=== PATIENT | male | born 1950 | race Caucasian/White ===

== ENCOUNTER → 2020-07-09 13:31 | Outpatient (CLI) | payer MEDICARE, OTHER, SELFPAY ==
--- NOTE | 2020-07-09 13:36 | DI.ECHO.S_ITS ---
[facility]---------[facility] +---------+ : : [address] : : : : [id number] : : : : Phone: [phone]+ Echocardiogram Report + + :Name: VANESSA MADERA Study Date: 07/09/2020 Height: 70 in : :[facility] ReadingLocation: Weight: 210 lb : : Gender: Male BSA: 2.1 m2 : :: 1950 Age: 69 yrs BP: 118/64 mmHg: :Reason For Study: LV DYSFUNCTION : :Ordering Physician: LUCAS, : :LAURA Performed By: Sonia Huber : :Referring: LAURA ZAVALA : + + Interpretation Summary Limited 2D echo. The left ventricle is normal in size and wall thickness. The ejection fraction is estimated to be 50-55%. Compared to the prior exam, the left ventricular function is improved significantly. The IVC is of normal diameter and collapses greater than 50% with a sniff. This suggests a low right atrial pressure of 3 mm Hg. As per the echo report from [facility] from October 2019, LV function has significantly improved. In the previous report, patient was in A. fib with LV ejection fraction 30 to 40%. In this study rhythm is sinus with LV ejection fraction about 50 to 55%. Procedure: A two-dimensional transthoracic echocardiogram with color flow and Doppler was performed in limited views only to assess ejection fraction.. The study quality was technically adequate. Comparison is made with the echocardiogram of October 2019, echo report from [facility].. The patient was in sinus rhythm with heart rates between 51-65 bpm during the exam. Left Ventricle: The left ventricle is normal in size and wall thickness. There is no thrombus. The ejection fraction is estimated to be 50-55%. Compared to the prior exam, the left ventricular function is improved. There are no focal wall motion abnormalities. MV E/A: 1.1 Med Peak E' John: 8.9 cm/sec E/E' med: 9.5. Right Ventricle: The right ventricle is normal in size and function. Atria: The left atrium is moderately dilated. The left atrium has mildly decreased in size since the prior echo exam. Right atrial size is normal. The right atrium has significantly decreased in size since the prior echo exam. Tricuspid Valve: Pulmonary artery pressures cannot be estimated because of the lack of a measurable TR jet velocity but the IVC suggests a CVP of around 3 mmHg. Great Vessels: The IVC is of normal diameter and collapses greater than 50% with a sniff. This suggests a low right atrial pressure of 3 mm Hg. Pericardium/ Pleura There is no pericardial effusion. There is no pleural effusion. MMode/2D Measurements & Calculations LVIDd: 5.6 cm LA A2 area: 26.5 cm2 LVIDs: 4.1 cm LA A4 area: 26.0 cm2 FS: 28.1 % LA length (vol): 6.2 cm IVSd: 0.82 cm LA vol: 93.8 ml LVPWd: 0.80 cm LA vol index: 44.0 ml/m2 LV moore. diameter/BSA (cm/m^2): 2.7 LV sys. diameter/BSA (cm/m^2): 1.9 RA long axis: 5.9 cm RVD1 (basal): 2.8 cm RA area: 18.1 cm2 TAPSE: 2.6 cm RA vol: 47.3 ml RA : 22.2 ml/m2 IVC diam: 1.2 cm Doppler Measurements & Calculations MV E max john: 84.0 cm/sec MV A max john: 77.6 cm/sec MV E/A: 1.1 Med Peak E' John: 8.9 cm/sec E/E' med: 9.5 Lat Peak E' John: 10.3 cm/sec E/E' lat: 8.1 E/e' average: 8.8 MV dec time: 0.25 sec Reading Physician:04:19 PM
== END ==
PROVIDERS: PCP Internal Medicine Geriatric Medicine; Referring Provider Internal Medicine Cardiovascular Disease; Visit Provider Internal Medicine Cardiovascular Disease
DX: I51.9 Heart disease, unspecified (principal)
CPT/HCPCS: 93307

== ENCOUNTER 2021-05-16 21:06 | Emergency (ER) | payer MEDICARE, SELFPAY ==
[2021-05-16] VITALS (9 sets, daily range): BP systolic 125–160; BP diastolic 59–84; PULSE 109–118; RESP 19–37; TEMP 37.2; O2SAT 92–98
--- NOTE | 2021-05-16 21:03 | DI.RAD.S_ITS ---
PROCEDURE: XR CHEST 1V INDICATIONS: shortness of breath TECHNIQUE: One view of the chest was acquired. COMPARISON: [facility], CT, CT CHEST ABDOMEN PELVIS WITHOUT CONTRAST, 04/03/2021, 11:33. FINDINGS: Surgical changes and devices: Right chest Port-A-Cath Lungs and pleura: Interstitial pulmonary edema, bilateral pleural effusions, bibasilar atelectasis. Mediastinum: Mediastinal contours appear normal. Heart size is normal. Bones and chest wall: No suspicious bony lesions. Overlying soft tissues appear unremarkable. IMPRESSION: Findings most likely represent a congestive heart failure exacerbation. Dictated by: Guillermo Lucas M.D. on 05/16/2021 at 22:54 Approved by: Guillermo Lucas M.D. on 05/16/2021 at 22:55
[2021-05-16 21:34] LABS: Add Manual Diff / Slide Review NO; Basophils Absolute Auto 0 /uL (0-100); Basophils Percent Auto 0.5 % (0-2); Eosinophils Absolute Auto 100 /uL (0-450); Eosinophils Percent Auto 2.4 % (2-4); Hemoglobin 7.3 g/dL (13.5-17.5); Lymphocytes Absolute Auto 800 /uL (1100-4500); Mean Corpuscular HGB Conc 33.3 % (30-36); Monocytes Absolute Auto 100 /uL (0-900); Monocytes Percent Auto 4.9 % (3-14); Neutrophils Absolute Auto 1900 /uL (1500-7000); Neutrophils Percent Auto 65.2 % (50-75); Platelet Count 49 X10^3/uL (150-400); Red Blood Cell Count 2.36 X10^6/uL (4.5-5.9); Red Cell Distribution Width 17.4 % (11.6-14.8)
[2021-05-16 21:42] LABS: Alanine Aminotransferase 10 IU/L (<50); Albumin 3.4 g/dL (3.5-5.0); Albumin Globulin Ratio 1.5 (1.0-2.8); Alkaline Phosphatase 48 U/L (38-126); Aspartate Aminotransferase 27 IU/L (17-59); Bilirubin Total 0.9 mg/dL (0.2-1.3); Blood Urea Nitrogen 58 mg/dL (9-20); Calcium 9.7 mg/dL (8.4-10.2); Carbon Dioxide 23 mmol/L (22-32); Chloride 114 mmol/L (98-107); Estimated Glomerular Filt Rate 47.8 mL/min (>60); Globulin 2.3 g/dL (1.7-4.1); Glucose 87 mg/dL (80-110); HEMOLYSIS < 15 (0-50); Potassium 4.8 mmol/L (3.4-5.1); Sodium 141 mmol/L (137-145); Total Protein 5.7 g/dL (6.3-8.2)
--- NOTE | 2021-05-16 22:11 | PC.NURSE ---
says he's more confused
[2021-05-16 22:26] LABS: Creatine Kinase 21 U/L (55-170)
[2021-05-16 22:39] LABS: NT-proBNP (BNP-Adult 18+) 3650 pg/mL (<125); Troponin I 0.022 ng/mL (0.01-0.034)
[2021-05-16 22:42] LABS: COVID19 -Nasal RAPID Negative (Negative)
--- NOTE | 2021-05-16 23:37 | ED.SOB ---
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 The chemotherapy has been stopped due to not responding in March of 2019 to he was evaluated for possible palliative radiation, states that he is not and palliative care or hospice but he is a DNR. 04/08/2019 to he was seen by Cardiology for decompensated heart failure he was started on Lasix 20 mg however due to increased creatinine that was adjusted on 04/24/2019 to to 20 mg every other day and the digoxin was also stopped. Today he presents with decreasing mental status increasing shortness of breath. states that in the last 3 hours of being in the emergency department he has actually declined. He typically is on 3 L of oxygen at home he is currently requiring 5-6. He has obvious tachypnea. He responds to voice and sternal rub unable to answer questions appropriately or respond with much history. Most history is from records and . Related Data Allergies Allergy/AdvReac Type Severity Reaction Status Date / Time codeine Allergy Verified 05/16/21 23:22 Penicillins Allergy Rash Verified 05/16/21 23:22 sertraline Allergy Verified 05/16/21 23:22 Review of Systems Review of Systems ROS Unobtainable: Unobtainable due to mental status/LOC Patient History Medical History Atrial fibrillation CHF (congestive heart failure) Prostate cancer metastatic to bone Exam Initial Vital Signs Initial Vital Signs: Vital Signs Temperature 99 F 05/16/21 21:05 Pulse Rate 109 H 05/16/21 21:05 Respiratory Rate 22 05/16/21 21:05 Blood Pressure 148/67 H 05/16/21 21:05 Pulse Oximetry 93 05/16/21 21:05 GENERAL: Tachypneic, pale chronically ill 70-year-old male in acute distress HEENT: Head atraumatic,EOMI, pupils reactive, face symmetric, moist mucous membranes CARDIOVASCULAR: Regular rate and rhythm without murmurs, rubs or gallops. RESPIRATORY: Tachypnea, coarse breath sounds bilaterally ABDOMEN: Soft, nontender. Normoactive bowel sounds all 4 quadrants. No guarding or rebound. EXTREMITIES: Normal range of motion, no clubbing or edema. Neurovascularly intact NEUROLOGICAL: Opens eyes to voice moves all extremities SKIN: Petechiae noted all over body multiple bruising and contusion Course Orders Ordered: ED Orders 05/16/21 21:03 XR chest 1V Stat EKG-12 Lead Stat Measure peak expiratory flow ONCE RT Consult Eval and Treat Now 05/16/21 21:11 BNP [NT-proBNP (BNP-Adult 18+)] Stat Complete Blood Count AUTO DIFF Stat Comprehensive Metabolic Panel Stat Lactate (Lactic Acid) Stat Troponin & CK Cardiac Panel Stat 05/16/21 22:00 COVID19 -Nasal swab/Pre-Proc Stat 05/16/21 23:45 CT angio chest PE protocol Stat CT head/brain wo con Stat 05/17/21 03:20 PRBC [Packed Cells] Stat Type and Screen Stat Discontinued Medications Furosemide (Furosemide 40 Mg/4 Ml Vial) 40 mg IV NOW ONE Stop: 05/16/21 23:38 Last Admin: 05/16/21 23:51 Dose: 40 mg Documented by: CHAYITOARRChrissie Furosemide (Furosemide 100 Mg/10 Ml Vial) 80 mg IV NOW ONE Stop: 05/17/21 00:49 Last Admin: 05/17/21 00:52 Dose: 80 mg Documented by: [email or web address].[email or web address] Hydromorphone HCl (Hydromorphone 1 Mg Inj) 1 mg IV NOW ONE Stop: 05/16/21 23:41 Last Admin: 05/16/21 23:53 Dose: Not Given Documented by: FARTUN Nitroglycerin (Nitroglycerin 0.4 Mg Sl Tab) 0.4 mg SL NOW ONE Stop: 05/17/21 00:52 Last Admin: 05/17/21 00:55 Dose: 0.4 mg Documented by: BRIAN Vital Signs Vital signs: Vital Signs - 8 hr 05/16/21 21:05 05/16/21 21:18 05/16/21 21:19 Temperature 99 F Pulse Rate 109 H 109 H 109 H Respiratory Rate Blood Pressure 148/67 H 153/59 H Pulse Oximetry 93 92 92 05/16/21 21:30 05/16/21 22:00 05/16/21 22:30 Temperature Pulse Rate 109 H 110 H 110 H Respiratory Rate 21 24 19 Blood Pressure 160/68 H 149/73 H 142/65 H Pulse Oximetry 92 93 95 05/16/21 23:00 05/16/21 23:30 05/16/21 23:31 Temperature Pulse Rate 115 H 118 H 118 H Respiratory Rate 20 24 37 H Blood Pressure 146/76 H 125/84 Pulse Oximetry 96 97 98 05/17/21 00:09 05/17/21 00:15 05/17/21 00:30 Temperature Pulse Rate 90 137 H 140 H Respiratory Rate Blood Pressure 188/86 H 194/79 H Pulse Oximetry 74 L 95 05/17/21 00:49 05/17/21 00:52 05/17/21 01:00 Temperature Pulse Rate 128 H 136 H 130 H Respiratory Rate 30 H 44 H 35 H Blood Pressure 194/79 H 159/70 H 153/70 H Pulse Oximetry 98 96 05/17/21 01:05 05/17/21 01:10 05/17/21 01:15 Temperature Pulse Rate 128 H 134 H 128 H Respiratory Rate 26 H 28 H 29 H Blood Pressure 137/62 132/58 L 143/60 H Pulse Oximetry 95 94 95 05/17/21 01:20 05/17/21 01:25 05/17/21 01:30 Temperature Pulse Rate 122 H 120 H 125 H Respiratory Rate 21 20 24 Blood Pressure 116/54 L 116/56 L 132/57 L Pulse Oximetry 97 97 97 05/17/21 01:35 05/17/21 01:41 05/17/21 01:45 Temperature Pulse Rate 122 H 133 H 119 H Respiratory Rate 26 H 48 H 22 Blood Pressure 140/63 147/70 H 137/61 Pulse Oximetry 97 95 97 05/17/21 01:50 05/17/21 01:56 05/17/21 02:00 Temperature Pulse Rate 121 H 126 H 125 H Respiratory Rate 23 45 H 28 H Blood Pressure 131/61 141/67 H 148/70 H Pulse Oximetry 98 85 L 94 05/17/21 02:05 05/17/21 02:10 05/17/21 02:15 Temperature Pulse Rate 125 H 126 H 120 H Respiratory Rate 24 28 H 26 H Blood Pressure 149/68 H 141/57 H 138/62 Pulse Oximetry 98 97 97 05/17/21 02:20 05/17/21 02:25 05/17/21 02:30 Temperature Pulse Rate 129 H 126 H 127 H Respiratory Rate 25 H 39 H 34 H Blood Pressure 144/68 H 140/65 138/66 Pulse Oximetry 95 98 98 05/17/21 02:35 05/17/21 02:40 05/17/21 02:45 Temperature Pulse Rate 123 H 122 H 118 H Respiratory Rate 26 H 27 H 21 Blood Pressure 135/63 127/60 124/58 L Pulse Oximetry 99 98 99 05/17/21 02:46 05/17/21 02:50 05/17/21 02:51 Temperature Pulse Rate 119 H 119 H 119 H Respiratory Rate 20 23 20 Blood Pressure 127/60 120/59 L 127/60 Pulse Oximetry 98 98 98 05/17/21 02:56 05/17/21 03:00 05/17/21 03:01 Temperature Pulse Rate 126 H 123 H 121 H Respiratory Rate 24 28 H 22 Blood Pressure 169/70 H 134/60 Pulse Oximetry 99 91 05/17/21 03:05 05/17/21 03:10 05/17/21 03:30 Temperature Pulse Rate 118 H 123 H 123 H Respiratory Rate 25 H 25 H 23 Blood Pressure 132/62 134/63 150/70 H Pulse Oximetry 98 96 97 05/17/21 04:00 05/17/21 04:10 05/17/21 04:27 Temperature 98.2 F Pulse Rate 124 H 117 H 115 H Respiratory Rate 34 H 23 32 H Blood Pressure 99/47 L 131/59 L Pulse Oximetry 97 95 MDM - SOB/Dyspnea Lab Data Result diagrams: 05/16/21 21:11 05/16/21 21:11 Labs: Lab Results 05/16/21 05/16/21 05/16/21 Range/Units 21:11 21:11 21:11 WBC 3.0 L (4.5-11.0) X10^3/uL RBC 2.36 L (4.5-5.9) X10^6/uL Hgb 7.3 L (13.5-17.5) g/dL Hct 22.0 L (41-53) % MCV 93.0 (80-100) fL MCH 31.0 (26-34) PG MCHC 33.3 (30-36) % RDW 17.4 H (11.6-14.8) % Plt Count 49 L (150-400) X10^3/uL Neut % (Auto) 65.2 (50-75) % Lymph % (Auto) 27.0 (25-40) % Meriwether % (Auto) 4.9 (3-14) % Eos % (Auto) 2.4 (2-4) % Baso % (Auto) 0.5 (0-2) % Neut # (Auto) 1900 (9922-2937) /uL Lymph # (Auto) 800 L (0879-1822) /uL Meriwether # (Auto) 100 (0-900) /uL Eos # (Auto) 100 (0-450) /uL Baso # (Auto) 0 (0-100) /uL Sodium 141 (137-145) mmol/L Potassium 4.8 (3.4-5.1) mmol/L Chloride 114 H (98-107) mmol/L Carbon Dioxide 23 (22-32) mmol/L BUN 58 H (9-20) mg/dL Creatinine 1.45 H (0.66-1.25) mg/dL Estimated GFR 47.8 L (>60) mL/min BUN/Creatinine Ratio 40.0 H (6-22) Glucose 87 (80-110) mg/dL Lactate 1.0 (0.7-2.1) mmol/L Calcium 9.7 (8.4-10.2) mg/dL Total Bilirubin 0.9 (0.2-1.3) mg/dL AST 27 (17-59) IU/L ALT 10 (<50) IU/L Alkaline Phosphatase 48 (38-126) U/L Total Creatine Kinase (55-170) U/L CK-MB (CK-2) CK-MB (CK-2) Rel Index Troponin I (0.01-0.034) ng/mL NT-Pro-B Natriuret Pep (<125) pg/mL Total Protein 5.7 L (6.3-8.2) g/dL Albumin 3.4 L (3.5-5.0) g/dL Globulin 2.3 (1.7-4.1) g/dL Albumin/Globulin Ratio 1.5 (1.0-2.8) SARS-CoV-2 (PCR) (Negative) Blood Type Antibody Screen Crossmatch 05/16/21 05/16/21 05/17/21 Range/Units 21:11 22:00 03:20 WBC (4.5-11.0) X10^3/uL RBC (4.5-5.9) X10^6/uL Hgb (13.5-17.5) g/dL Hct (41-53) % MCV (80-100) fL MCH (26-34) PG MCHC (30-36) % RDW (11.6-14.8) % Plt Count (150-400) X10^3/uL Neut % (Auto) (50-75) % Lymph % (Auto) (25-40) % Meriwether % (Auto) (3-14) % Eos % (Auto) (2-4) % Baso % (Auto) (0-2) % Neut # (Auto) (9720-0583) /uL Lymph # (Auto) (8724-6897) /uL Meriwether # (Auto) (0-900) /uL Eos # (Auto) (0-450) /uL Baso # (Auto) (0-100) /uL Sodium (137-145) mmol/L Potassium (3.4-5.1) mmol/L Chloride (98-107) mmol/L Carbon Dioxide (22-32) mmol/L BUN (9-20) mg/dL Creatinine (0.66-1.25) mg/dL Estimated GFR (>60) mL/min BUN/Creatinine Ratio (6-22) Glucose (80-110) mg/dL Lactate (0.7-2.1) mmol/L Calcium (8.4-10.2) mg/dL Total Bilirubin (0.2-1.3) mg/dL AST (17-59) IU/L ALT (<50) IU/L Alkaline Phosphatase (38-126) U/L Total Creatine Kinase 21 L (55-170) U/L CK-MB (CK-2) TNP CK-MB (CK-2) Rel Index TNP Troponin I 0.022 (0.01-0.034) ng/mL NT-Pro-B Natriuret Pep 3650 H (<125) pg/mL Total Protein (6.3-8.2) g/dL Albumin (3.5-5.0) g/dL Globulin (1.7-4.1) g/dL Albumin/Globulin Ratio (1.0-2.8) SARS-CoV-2 (PCR) Negative (Negative) Blood Type O Positive Antibody Screen Negative Crossmatch See Detail Imaging Data CT scan - chest: Radiologist's Impression: PROCEDURE:? CT ANGIO CHEST PE PROTOCOL ? INDICATIONS:? hypoxic ? TECHNIQUE:? After the administration of intravenous contrast, 2 mm thick sections acquired from the pulmonary apices to the posterior costophrenic angles.? 3-dimensional maximum intensity projection (MIP) coronal and sagittal reformats were then acquired through the thorax.? For radiation dose reduction, the following was used:? automated exposure control, adjustment of mA and/or kV according to patient size.? ? COMPARISON:? [facility], CT, CT CHEST ABDOMEN PELVIS WITHOUT CONTRAST, 04/03/2021, 11:33. ? FINDINGS:? Image quality:? Excellent.? ? Pulmonary arteries:? Pulmonary arteries are normal in size, and demonstrate no intraluminal filling defects to suggest central pulmonary embolism.? ? Lungs and pleura:? Diffuse severe lower and interstitial pulmonary edema, large bilateral pleural effusions, compressive bibasilar atelectasis. ? Mediastinum:? Mild cardiomegaly.? No pericardial effusion.? Moderate coronary artery calcifications.? No mediastinal or hilar adenopathy.? Thoracic aorta is normal in caliber and enhancement.? Esophagus is normal in caliber, without hiatal hernia.? ? Bones and chest wall:? Diffuse osseous blastic metastatic disease.? Thyroid gland is unremarkable as visualized.? No axillary or supraclavicular adenopathy.? ? Abdomen:? Right kidney appears somewhat atrophied. ? IMPRESSION:? ? 1. Severe congestive heart failure exacerbation. ? 2. No evidence acute pulmonary emboli. ? 3. Blastic metastatic disease consistent with prostate metastatic lesions.? ? ? Dictated by: Guillermo Lucas M.D. on 05/17/2021 at 0:37 ? ? Approved by: Guillermo Lucas M.D. on 05/17/2021 at 0:42? Chest x-ray: Radiologist's Impression: PROCEDURE:? XR CHEST 1V ? INDICATIONS:? shortness of breath ? TECHNIQUE:? One view of the chest was acquired.? ? COMPARISON:? [facility], CT, CT CHEST ABDOMEN PELVIS WITHOUT CONTRAST, 04/03/2021, 11:33. ? FINDINGS:? ? Surgical changes and devices:? Right chest Port-A-Cath ? Lungs and pleura:? Interstitial pulmonary edema, bilateral pleural effusions, bibasilar atelectasis. ? Mediastinum:? Mediastinal contours appear normal.? Heart size is normal.? ? Bones and chest wall:? No suspicious bony lesions.? Overlying soft tissues appear unremarkable.? ? IMPRESSION:? Findings most likely represent a congestive heart failure exacerbation. ? ? Dictated by: Guillermo Lucas M.D. on 05/16/2021 at 22:54 ? ? CT scan - head: Radiologist's Impression: PROCEDURE:? CT HEAD/BRAIN WO CON ? INDICATIONS:? decreased mental status with cancer and mets ? TECHNIQUE:? Noncontrast 4.5 mm thick angled axial sections acquired from the foramen magnum to the vertex, with coronal and sagittal reformats.? For radiation dose reduction, the following was used:? automated exposure control, adjustment of mA and/or kV according to patient size.? ? COMPARISON:? None. ? FINDINGS:? Image quality:? Excellent.? ? CSF spaces:? Basal cisterns are patent.? No extra-axial fluid collections.? The ventricles are symmetric in size and shape.? ? Brain:? No intracranial bleeds or masses.? There is cerebral volume loss for age, with resultant ventricular and sulcal prominence.? There are periventricular and deep white matter chronic small vessel ischemic changes.? There is intracranial internal carotid artery atherosclerosis.? ? Skull and face:? Calvarium and visualized facial bones appear intact, without suspicious lesions.? ? Sinuses:? Visualized sinuses and mastoids are clear.? ? IMPRESSION:? No evidence acute stroke, hemorrhage, or mass. ? ? Dictated by: Guillermo Lucas M.D. on 05/17/2021 at 0:36 ? ? ECG Data Interpretation: Sinus rhythm rate 112 NC interval 184 QRS 94 QTC 434 PVC noted MDM Narrative Medical decision making narrative: Patient is tachypneic pale slightly cyanotic. He went to CT for rule out pulmonary embolism, which was negative and showed severe congestive heart failure, where he had to lay flat came back pain was significantly worse. Required immediate high-flow nasal cannula. He had not urinated with the 40 of Lasix overall Decompensating. Discussion with who states that she did not want BiPAP he is DNR/DNI a but was agreeable to high-flow nasal cannula. He was given 2nd dose of 80 mg of Lasix along with nitroglycerin to help with diuresis. Villanueva catheter was not placed previously patient had very traumatic Villanueva catheter placement there is a lot of scar tissue, urinal placed instead. Patient continues to be anemic with a hemoglobin of 7.3 he actually was transfused unit yesterday. Record to finally been received and reviewed at [facility] blood transfusion threshold is a hemoglobin of 8/24. Patient has turned around color appears pink respiratory rate has improved. He is maintaining much better. I did discuss with family withdrawing care comfort only hospice and other options. At some the patient has had a gradual decline over the last 2 months and getting significantly worse. At this time they are agreeable to continue high-flow nasal cannula and diuresis. [facility] dose Not have any ICU beds which she requires here due to the high-flow nasal cannula He is followed at [facility] but they don't have bed availability Dr. Lebron, hospitalist at [facility] has been updated patient's symptoms and test results happily accepted. Critical Care Time Critical Care Time Critical Care Time: Yes Total Critical Care Time: 60 Attestation: The high probability of a clinically significant, sudden or life threatening deterioration of the [cardiovascular] system(s) required my full and direct attention, intervention and personal management. The aggregate critical care time was 60 minutes. This time is in addition to time spent performing reported procedures but includes the following: [x] Data Review and interpretation [x] Patient assessment and monitoring of vital signs [x] Documentation [x] Medication orders and management Discharge Plan Departure [facility] Impression: Congestive heart failure, Anemia Referrals: Marybeth Kim MD [Primary Care Provider] - Stand Alone Forms: Work Release Note
--- NOTE | 2021-05-16 23:45 | DI.CT.S_ITS ---
PROCEDURE: CT ANGIO CHEST PE PROTOCOL INDICATIONS: hypoxic TECHNIQUE: After the administration of intravenous contrast, 2 mm thick sections acquired from the pulmonary apices to the posterior costophrenic angles. 3-dimensional maximum intensity projection (MIP) coronal and sagittal reformats were then acquired through the thorax. For radiation dose reduction, the following was used: automated exposure control, adjustment of mA and/or kV according to patient size. COMPARISON: [facility], CT, CT CHEST ABDOMEN PELVIS WITHOUT CONTRAST, 04/03/2021, 11:33. FINDINGS: Image quality: Excellent. Pulmonary arteries: Pulmonary arteries are normal in size, and demonstrate no intraluminal filling defects to suggest central pulmonary embolism. Lungs and pleura: Diffuse severe lower and interstitial pulmonary edema, large bilateral pleural effusions, compressive bibasilar atelectasis. Mediastinum: Mild cardiomegaly. No pericardial effusion. Moderate coronary artery calcifications. No mediastinal or hilar adenopathy. Thoracic aorta is normal in caliber and enhancement. Esophagus is normal in caliber, without hiatal hernia. Bones and chest wall: Diffuse osseous blastic metastatic disease. Thyroid gland is unremarkable as visualized. No axillary or supraclavicular adenopathy. Abdomen: Right kidney appears somewhat atrophied. IMPRESSION: 1. Severe congestive heart failure exacerbation. 2. No evidence acute pulmonary emboli. 3. Blastic metastatic disease consistent with prostate metastatic lesions. Dictated by: Guillermo Lucas M.D. on 05/17/2021 at 0:37 Approved by: Guillermo Lucas M.D. on 05/17/2021 at 0:42
--- NOTE | 2021-05-16 23:45 | DI.CT.S_ITS ---
PROCEDURE: CT HEAD/BRAIN WO CON INDICATIONS: decreased mental status with cancer and mets TECHNIQUE: Noncontrast 4.5 mm thick angled axial sections acquired from the foramen magnum to the vertex, with coronal and sagittal reformats. For radiation dose reduction, the following was used: automated exposure control, adjustment of mA and/or kV according to patient size. COMPARISON: None. FINDINGS: Image quality: Excellent. CSF spaces: Basal cisterns are patent. No extra-axial fluid collections. The ventricles are symmetric in size and shape. Brain: No intracranial bleeds or masses. There is cerebral volume loss for age, with resultant ventricular and sulcal prominence. There are periventricular and deep white matter chronic small vessel ischemic changes. There is intracranial internal carotid artery atherosclerosis. Skull and face: Calvarium and visualized facial bones appear intact, without suspicious lesions. Sinuses: Visualized sinuses and mastoids are clear. IMPRESSION: No evidence acute stroke, hemorrhage, or mass. Dictated by: Guillermo Lucas M.D. on 05/17/2021 at 0:36 Approved by: Guillermo Lucas M.D. on 05/17/2021 at 0:37
[2021-05-16] MEDS: FUROSEMIDE 40 MG/4 ML VIAL IV (23:51)
[2021-05-17] VITALS (40 sets, daily range): BP systolic 99–194; BP diastolic 47–86; PULSE 90–140; RESP 20–48; TEMP 36.8; O2SAT 74–99
[2021-05-17] MEDS: FUROSEMIDE 100 MG/10 ML VIAL 80 MG IV (00:52)
[2021-05-17] MEDS: NITROGLYCERIN 0.4 MG SL TAB SL (00:55)
--- NOTE | 2021-05-17 04:14 | RT ---
Patient trialled on 15+ L NRB mask for 20 mins to determine transport ability off highflow. Tolerated well with SPO2 in 97-98% and only a small increase in respiratory rate and effort.
--- NOTE | 2021-05-17 04:54 | RT ---
Patient transfered to NRB and transfered to transport crew.
--- NOTE | 2021-05-17 05:00 | PC.NURSE ---
Pt transfered immediately after blood was started. did not get 15 min vitals due to pt not in department. Pt transferred with
== END 2021-05-17 05:31 | disposition short-term general hospital (02) ==
PROVIDERS: Emergency Provider Emergency Medicine; PCP Internal Medicine Geriatric Medicine
DX: I50.9 Heart failure, unspecified (principal); I11.0 Hypertensive heart disease with heart failure; C61 Malignant neoplasm of prostate; D63.0 Anemia in neoplastic disease; C79.51 Secondary malignant neoplasm of bone; Z66 Do not resuscitate; Z20.822 Contact with and (suspected) exposure to COVID-19
CPT/HCPCS: 36415; 36430; 70450; 71045; 71275; 80053; 82550; 83605; 83880; 84484; 85025; 86850; 86900; 86901; 87635; 93005; 96374; 96376; 99285; 99291; C9803; P9016; J1940; Q9967